=== PATIENT | female | born 2000 | race African-American/Black ===

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

== ENCOUNTER 2021-08-11 12:49 | Emergency (ER) | payer OTHER, SELFPAY ==
[2021-08-11 12:52] VITALS: BP 103/61; PULSE 84; RESP 18; TEMP 36.7; O2SAT 98; BMI 21.9
== END 2021-08-11 15:45 | disposition left against medical advice (07) ==
PROVIDERS: Emergency Provider Emergency Medicine
DX: N89.8 Other specified noninflammatory disorders of vagina (principal)
CPT/HCPCS: 99281; 99282

== ENCOUNTER 2021-08-14 06:10 | Emergency (ER) | payer OTHER, SELFPAY ==
[2021-08-14 06:21] VITALS: BP 127/76; PULSE 114; RESP 16; TEMP 36.8; O2SAT 98; BMI 22.7
--- NOTE | 2021-08-14 06:36 | ED_ITS ---
HPI - Skin/Abscess/Foreign Bdy General Chief complaint: Skin/Abscess/Foreign Body Stated complaint: Cyst Time Seen by Provider: 08/14/21 06:36 Source: patient Mode of arrival: ambulatory Limitations: no limitations History of Present Illness MD complaint: abscess/boil Onset (ago): week(s) (1) Tetanus up to date: yes Location: genitals Severity: moderate Quality: aching Pain Consistency: constant Relieving factors: none Exacerbating factors: palpation Context: none Associated symptoms: fever and chills Treatments prior to arrival: none Related Data Previous Rx's Medication Instructions Recorded mupirocin calcium 2 % topical cream 1 applic TOPICAL BID #15 g 06/07/20 valacyclovir 1 gram tablet 1,000 mg PO BID #14 tab 06/07/20 (Valtrex) hydrocodone 5 mg-acetaminophen 325 1 tab PO Q6H PRN #8 tab 08/14/21 mg tablet ibuprofen 600 mg tablet 600 mg PO Q6H PRN #30 tab 08/14/21 ondansetron 4 mg disintegrating 4 mg PO Q8H PRN #20 tab 08/14/21 tablet sulfamethoxazole 800 1 tab PO BID 7 Days #14 tab 08/14/21 mg-trimethoprim 160 mg tablet (Bactrim DS) Allergies Allergy/AdvReac Type Severity Reaction Status Date / Time No Known Allergies Allergy Verified 08/14/21 06:25 Review of Systems Review of Systems: Constitutional : pos Fever, pos Chills ENT/Mouth : No sore throat, No Rhinorrhea Eyes: No Eye Pain, No Swelling, No Redness Cardiovascular : No Chest Pain, No SOB Respiratory : No Cough, No Sputum Gastrointestinal : No Nausea, No Vomiting, No Diarrhea, No abdominal Pain Genitourinary : No Dysuria, No Hematuria Musculoskeletal : No joint pain, No Myalgias, No Joint Swelling Skin : pos Skin Lesions, positive skin rash Neuro : No Weakness, No Numbness, No Headache Psych : No Anxiety, No Depression Heme/Lymph: No Bruising, No Bleeding,No Lymphadenopathy Endocrine : No Polyuria, No Polydipsia All other systems reviewed and are negative [facility] Past Medical History Attestation statement: The following information was validated with the patient. Medical History Anemia Physical exam Surgical History No pertinent past surgical history Social History Social History (Updated 08/14/21 @ 06:50 by Nehal Wright DO) Alcohol intake: never Patient Tobacco Use Status: Never used Tobacco Advance Directives: No Patient : Yes Physical Exam Vital Signs: Vital Signs: Last Vital Signs Temp 98.2 F 08/14/21 07:08 Pulse 84 08/14/21 07:08 Resp 16 08/14/21 07:08 BP 106/62 08/14/21 07:08 Pulse Ox 100 08/14/21 07:08 BMI result Body Mass Index 22.7 Appearance: Alert. Oriented X3. No acute distress. Eyes: Pupils equal, round and reactive to light. ENT: Pharynx normal. Neck: Normal inspection. Neck supple. CVS: Normal heart rate and rhythm. Pulses normal. Respiratory: No respiratory distress. Breath sounds normal. Abdomen: Soft and nontender. : moderate bartholin cyst noted on R side no signs of outward cellulitis Skin: Skin warm and dry. Normal skin color. Normal skin turgor. Extremities: No lower extremity edema. No calf ttp Neuro: Oriented X 3. No motor deficit. No sensory deficit. MDM - Skin/Abscess/Foreign Bdy MDM Narrative Medical decision making narrative: 21 yo female with R sided bartholin cyst x 1 week - at this time will need I/D she also reports fever and chills at home will start on bactrim. Anticipate DC home with wound precautions Procedures Abscess I/D Site: bartholin's gland Side (if applicable): right Local Anesthetic: lidocaine 1% Amount of anesthesia used (mL): 5 Technique: incised with blade Amount of fluid expressed (mL): 7 Sent for culture/gram staining?: No Irrigation: Yes Packing used?: none Discharge Plan Discharge Clinical Impression: Bartholin cyst Patient Disposition: Home, Self-Care Instructions: Bartholin Cyst (ED) Additional Instructions: return to ED for any worsening symptoms or concerns the area will still drain, monitor for signs of fevers, wosrening pain, any other concerns Prescriptions: New hydrocodone-acetaminophen 5-325 mg tablet 1 tab PO Q6H PRN (Reason: pain) Qty: 8 RF: 0 ibuprofen 600 mg tablet 600 mg PO Q6H PRN (Reason: pain) Qty: 30 RF: 0 ondansetron 4 mg tablet,disintegrating 4 mg PO Q8H PRN (Reason: nausea and vomiting) Qty: 20 RF: 0 sulfamethoxazole-trimethoprim [Bactrim DS] 800-160 mg tablet 1 tab PO BID 7 Days Qty: 14 RF: 0 No Action valacyclovir [Valtrex] 1 gram tablet 1,000 mg PO BID Qty: 14 RF: 0 mupirocin calcium 2 % cream 1 applic topical BID Qty: 15 RF: 0 Stand Alone Forms: Work/School Release
[2021-08-14 07:08] VITALS: BP 106/62; PULSE 84; RESP 16; TEMP 36.8; O2SAT 100
[2021-08-14] MEDS: Sulfamethox/Trimeth 800/160 TABLET 1 TAB PO (07:56)
[2021-08-14] MEDS: Lidocaine 4 % Cream KIT 1 APPL TOPICAL (07:56)
[2021-08-14] MEDS: Lidocaine HCl 1 % 20 ML VIAL SUBCUT (07:56)
== END 2021-08-14 08:10 | disposition home or self-care (01) ==
PROVIDERS: Emergency Provider Emergency Medicine
DX: N75.0 Cyst of Bartholin's gland (principal)
CPT/HCPCS: 56420; 99284

== ENCOUNTER 2021-12-18 08:04 | Emergency (ER) | payer OTHER, SELFPAY ==
[2021-12-18 08:05] VITALS: BP 125/75; PULSE 108; RESP 17; TEMP 36.6; O2SAT 98; BMI 22.7
--- NOTE | 2021-12-18 08:20 | ED_ITS ---
HPI - URI/Sore Throat General Chief Complaint: Upper Respiratory Symptoms Stated Complaint: Sore throat Time Seen by Provider: 12/18/21 08:11 Source: patient Mode of arrival: ambulatory Limitations: no limitations History of Present Illness HPI Narrative: 21 y/o female presenting with sore throat x6 days. Symptoms have been worsening and today she noticed white spots all over both of her tonsils. She has signific ant pain with swallowing but is able to tolerate PO liquids and solids. She reports intermittent fevers and tender lymph nodes in her neck. She is vaccinated for COVID and Flu. No known sick contacts. No N/V/D or abdominal pain. MD elicited complaint: fever and sore throat Onset (ago): day(s) (6) Consistency: constant Severity: severe Description of mucous: clear Able to tolerate fluids by mouth: Yes Exacerbating factors: swallowing Relieving factors: nothing Associated symptoms: fever, nasal congestion and sore throat Treatments prior to arrival: none Related Data Previous Rx's Medication Instructions Recorded mupirocin calcium 2 % topical cream 1 applic TOPICAL BID #15 g 06/07/20 valacyclovir 1 gram tablet 1,000 mg PO BID #14 tab 06/07/20 (Valtrex) hydrocodone 5 mg-acetaminophen 325 1 tab PO Q6H PRN #8 tab 08/14/21 mg tablet ibuprofen 600 mg tablet 600 mg PO Q6H PRN #30 tab 08/14/21 ondansetron 4 mg disintegrating 4 mg PO Q8H PRN #20 tab 08/14/21 tablet sulfamethoxazole 800 1 tab PO BID 7 Days #14 tab 08/14/21 mg-trimethoprim 160 mg tablet (Bactrim DS) amoxicillin 500 mg tablet 500 mg PO Q12H #20 tab 12/18/21 ibuprofen 600 mg tablet 600 mg PO Q8H PRN #20 tab 12/18/21 Allergies Allergy/AdvReac Type Severity Reaction Status Date / Time No Known Allergies Allergy Verified 08/14/21 06:25 Review of Systems Review of Systems: Constitutional: +Fever, No Chills ENT/Mouth: + sore throat, No Rhinorrhea, No Swallowing Difficulty Eyes: No Eye Pain, No Swelling, No Redness Cardiovascular: No Chest Pain, No SOB Respiratory: No Cough, No Sputum Gastrointestinal: No Nausea, No Vomiting, No Diarrhea, No abdominal Pain Musculoskeletal: No joint pain, No Myalgias Skin: No Skin Lesions, No rash Neuro: No Dizziness, No Headache Psych: No Anxiety/Panic, No Depression Heme/Lymph: No Bruising, + Lymphadenopathy PMFSH Past Medical History Medical History Anemia Physical exam Surgical History No pertinent past surgical history Social History Social History (Updated 08/14/21 @ 06:50 by Nehal Wright DO) Alcohol intake: never Patient Tobacco Use Status: Never used Tobacco Advance Directives: No Patient : No Physical Exam Vital Signs: Vital Signs: Last Vital Signs Temp 97.8 F 12/18/21 08:05 Pulse 108 H 12/18/21 08:05 Resp 17 12/18/21 08:05 BP 125/75 12/18/21 08:05 Pulse Ox 98 12/18/21 08:05 BMI result Body Mass Index 22.7 Appearance: Alert. Oriented X3. No acute distress. HEENT: Normocephalic, atraumatic, normal inspection of the external eyes and nose. Tympanic membranes are normal bilaterally. Pharynx with moist mucus membranes, tonsils are bilaterally enlarged with extensive exudates, uvula midl ine. handling secretions normally. Neck: normal inspection, supple. shotty, tender LAD submandibular CVS: Normal heart rate and rhythm. Pulses normal. Respiratory: No respiratory distress. Lungs are clear throughout Skin: Skin warm and dry. Normal skin color. Normal skin turgor. No rashes. Extremities: Normal inspection, normal range of motion x4 Neuro: Oriented X 3. No motor deficit. No sensory deficit. Course Course Course Narrative: 21-year-old female presenting to the ER with sore throat for the last 6 days. Exam and clinical presentation are consistent with strep throat. Will test for strep, flu and COVID. She has no evidence of abscess is able to tolerate p.o.. Will give 1st dose of antibiotics and numbing agent here. Reevaluation(s) Reevaluation #1: Patient is negative for strep, flu and COVID. Given her physical exam findings will empirically treat with amoxicillin. Patient was counseled and is stable for discharge home. MDM - URI/Sore Throat Lab Data Labs: Lab Results 0412/18/21 12/18/21 Range/Units 08:11 08:15 08:15 COVID-19 (HEATH) Negative (Negative) COVID-19 Clin Com See Note Influenza Type A (TANIA) Negative (Negative) Influenza Type B (TANIA) Negative (Negative) Influenza A & B Note See Note S. pyogenes GrpA TANIA Negative (Negative) Critical Care Time Critical Care Time Critical Care Time: No Discharge Plan Discharge Clinical Impression: Pharyngitis Patient Disposition: Home, Self-Care Instructions: Influenza (DC) Additional Instructions: You have for strep throat, COVID-19 and influenza. Given your exam findings are being treated with antibiotics any how. Take the prescribed antibiotics for a full 10 days. Recommend warm saltwater gargles several times per day Recommend [id number] Chloraseptic spray or Cepacol lozenges as needed for sore throat. Take the prescribed anti-inflammatory pain medication to help with pain and fever. Follow-up with your doctor as needed. If you develop new or worsening symptoms call 911 or come back to the ER for further evaluation. Prescriptions: New amoxicillin 500 mg tablet 500 mg PO Q12H Qty: 20 0RF ibuprofen 600 mg tablet 600 mg PO Q8H PRN (Reason: fever or pain) Qty: 20 0RF No Action valacyclovir [Valtrex] 1 gram tablet 1,000 mg PO BID Qty: 14 0RF Rx Instructions: VALTREX TWICE A DAY FOR 7 DAYS DISPENSE 14 TABS mupirocin calcium 2 % cream 1 applic topical BID Qty: 15 0RF Rx Instructions: MUPIROCIN OINTMENT APPLY TWICE A DAY FOR 5 DAYS DISPENSE 1 TUBE hydrocodone-acetaminophen 5-325 mg tablet 1 tab PO Q6H PRN (Reason: pain) Qty: 8 0RF ibuprofen 600 mg tablet 600 mg PO Q6H PRN (Reason: pain) Qty: 30 0RF ondansetron 4 mg tablet,disintegrating 4 mg PO Q8H PRN (Reason: nausea and vomiting) Qty: 20 0RF sulfamethoxazole-trimethoprim [Bactrim DS] 800-160 mg tablet 1 tab PO BID 7 Days Qty: 14 0RF Stand Alone Forms: Work/School Release
[2021-12-18 08:43] LABS: COVID-19 Test Negative (Negative); IDNOW Serial# 16C4AD1C
[2021-12-18 08:50] LABS: Strep A Nucleic Acid Negative (Negative)
[2021-12-18] MEDS: Lidocaine HCl Viscous 2 % 15 ML SOLUTION MUCOUS MEM (08:51)
[2021-12-18] MEDS: Amoxicillin 500 MG CAPSULE PO (08:51)
[2021-12-18] MEDS: dexAMETHasone 2 MG TABLET 10 MG PO (08:51)
[2021-12-18 08:52] LABS: IDNOW Serial# 08D9AD1C; Influenza A Negative (Negative); Influenza B2 Negative (Negative)
== END 2021-12-18 09:15 | disposition home or self-care (01) ==
PROVIDERS: Physician Assistant; Emergency Provider Emergency Medicine
DX: J02.8 Acute pharyngitis due to other specified organisms (principal); Z20.822 Contact with and (suspected) exposure to COVID-19; Z79.899 Other long term (current) drug therapy
CPT/HCPCS: 36415; 87502; 87635; 87651; 99283; J8540

== ENCOUNTER 2022-02-05 17:56 | Emergency (ER) | payer OTHER, SELFPAY ==
--- NOTE | ~2022-02-05 | US_ITS ---
EXAMINATION: US PELVIS CLINICAL INFORMATION: Right lower quadrant pain COMPARISON: CT abdomen pelvis earlier today TECHNIQUE: Ultrasound of the pelvis is performed using both transabdominal and transvaginal transducers along with Doppler. Transvaginal imaging is performed due to inadequate visualization transabdominally. FINDINGS: Uterus: The uterus is anteverted and measures 8.1 x 3.7 x 4.9 cm. The double wall endometrial thickness is 0.5 mm. The uterus is smooth in contour and has normal myometrial echogenicity. No visible fibroid. Adnexa: The ovarian teratomas that were well characterized on the CT scan earlier today are seen. Right ovary measures 8.7 x 6 mm x 6.8 cm for a volume of 189 mL and includes an 8.1 x 6.1 x 5.6 cm mass with cystic and solid components. The calcifications present on the CT scan are not demonstrated Left ovary measures 6.6 x 4.3 x 4.7 cm for a volume of 70 mL and includes a 5.6 x 3.9 x 4.2 cm complex cyst filled with echogenic material. Some solid components are seen. The calcifications seen on the CT scan are not demonstrated US/US pelvic ovarian doppler IMPRESSION: Bilateral cystic ovarian teratomas much better characterized on CT scan in this ultrasound exam.
--- NOTE | ~2022-02-05 | CT_ITS ---
EXAMINATION: CT ABDOMEN AND PELVIS WITHOUT CONTRAST CLINICAL INFORMATION: Right lower quadrant pain. COMPARISON: None TECHNIQUE: Multidetector volumetric imaging was performed from the superior aspect of the liver through the pubic symphysis. Sagittal and coronal reformatted images were obtained on the technologist's workstation. This CT examination was performed using dose optimization techniques as appropriate, variously including the following: *Automated exposure control *Adjustment of mA and/or kV according to patient size (this includes techniques or standardized protocols for targeted exams where dose is matched to indication/reason for exam; i.e. extremities or head) *Use of iterative reconstruction technique DLP: 343 mGy-cm FINDINGS: LUNG BASES: The visualized lung bases are unremarkable. LIVER, GALLBLADDER, AND BILIARY TREE: The liver is normal in size, shape, and attenuation. No focal hepatic lesion or biliary ductal dilatation is present. The gallbladder is unremarkable with no evidence of radiopaque gallstones, gallbladder wall thickening, or obvious pericholecystic inflammatory changes. PANCREAS: Unremarkable. SPLEEN: Unremarkable. ADRENAL GLANDS: Unremarkable. KIDNEYS AND URETERS: The kidneys are normal in size, shape, and attenuation. No hydronephrosis, hydroureter, or calculi seen. No perinephric stranding. BLADDER: Unremarkable. GASTROINTESTINAL TRACT: Stomach, small bowel, and colon are normal in caliber. No bowel wall thickening or surrounding inflammatory changes. Appendix is normal. No intraperitoneal free fluid or free air. ABDOMINAL WALL: No significant hernia is appreciated. LYMPH NODES: Normal. VASCULAR: Unremarkable. PELVIC VISCERA: Uterus is normal in size and appearance. At the right ovary, there is a multilocular, complex dominant 7.6 cm fluid attenuation (5 Hounsfield unit) component as well as multiple surrounding fat density components. A round fat attenuation component at the cephalad/anterior margin of the cystic component measures 3.2 x 1.8 x 2.1 cm. A small dense calcified component is present within the cystic region. This lesion measures 8.3 cm in maximum dimension. There is a similar, complex lesion within the left adnexal region with a dominant 5.2 cm near fluid attenuation component as well as a 2.5 cm fat attenuation component. A cluster of multiple dense calcific foci in the left ovary likely correspond to teeth. This lesion measures 7.2 cm in maximal dimension. OSSEOUS STRUCTURES: No acute osseous findings. 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 Surgical consultation is advised. Consider correlation with pelvic ultrasound if there is a clinical concern for torsion.
--- NOTE | ~2022-02-05 | US_ITS ---
EXAMINATION: US PELVIS CLINICAL INFORMATION: Right lower quadrant pain COMPARISON: CT abdomen pelvis earlier today TECHNIQUE: Ultrasound of the pelvis is performed using both transabdominal and transvaginal transducers along with Doppler. Transvaginal imaging is performed due to inadequate visualization transabdominally. FINDINGS: Uterus: The uterus is anteverted and measures 8.1 x 3.7 x 4.9 cm. The double wall endometrial thickness is 0.5 mm. The uterus is smooth in contour and has normal myometrial echogenicity. No visible fibroid. Adnexa: The ovarian teratomas that were well characterized on the CT scan earlier today are seen. Right ovary measures 8.7 x 6 mm x 6.8 cm for a volume of 189 mL and includes an 8.1 x 6.1 x 5.6 cm mass with cystic and solid components. The calcifications present on the CT scan are not demonstrated Left ovary measures 6.6 x 4.3 x 4.7 cm for a volume of 70 mL and includes a 5.6 x 3.9 x 4.2 cm complex cyst filled with echogenic material. Some solid components are seen. The calcifications seen on the CT scan are not demonstrated US/US pelvic complete IMPRESSION: Bilateral cystic ovarian teratomas much better characterized on CT scan in this ultrasound exam.
[2022-02-05 19:00] VITALS: BP 116/71; PULSE 80; RESP 18; TEMP 36.6; O2SAT 100; BMI 21.9
[2022-02-05 19:58] LABS: MANUAL DIFF FLAG NO
[2022-02-05 20:01] LABS: UPreg QC Valid YES; Urine Pregnancy NEGATIVE (NEGATIVE)
[2022-02-05 20:04] LABS: Basophils Percent Auto 0.2 % (0-2); Eosinophils Percent Auto 0.2 % (0-4); Hematocrit 42.5 % (37.0-47.0); Hemoglobin 13.7 g/dl (12.0-16.0); Imm Gran Abs Auto 0.03 X10*3/uL (0.00-0.03); Imm Gran Pct Auto 0.3 % (0.0-0.4); Lymphocytes Absolute Auto 0.8 X10*3/uL (1.2-4.9); Lymphocytes Percent Auto 8.9 % (20-40); Mean Corpuscular HGB Conc 32.2 g/dl (31.0-35.0); Mean Corpuscular Hemoglobin 26.8 pg (27.0-33.0); Mean Platelet Volume 9.4 fL (9.4-12.3); Monocytes Absolute Auto 0.4 X10*3/uL (0.1-1.2); Monocytes Percent Auto 4.1 % (2-11); Neutrophils Absolute Auto 7.7 x10*3/uL (2.0-8.3); Neutrophils Percent Auto 86.3 % (45-73); Platelet Count 235 X10*3/uL (160-400); Red Blood Count 5.12 X10*6/uL (4.20-5.50); Red Cell Distribution Width 13.8 % (11.0-16.0)
[2022-02-05 20:05] LABS: Appearance Urine CLEAR; Color Urine YELLOW; Glucose Urine UA NEG (NEG); Leukocyte Esterase Urine NEG (NEG); Nitrite Urine NEG (NEG); PH 7.5 (5.0-8.0); Urine Blood NEG (NEG); Urine Ketones NEG (NEG); Urine Protein NEG (NEG-TRACE)
[2022-02-05 20:17] LABS: Alanine Aminotransferase 9 U/L (0-31); Albumin Level 4.4 g/dL (3.5-5.0); Alkaline Phosphatase 59 U/L (39-117); Anion Gap 13 (12-20); Aspartate Amino Transferase 14 U/L (5-31); Bilirubin Direct 0.7 mg/dL (0.0-0.5); Bilirubin Total 1.7 mg/dL (0.0-1.0); Blood Urea Nitrogen 9 mg/dL (9-16); Calcium 9.7 mg/dL (8.4-10.2); Carbon Dioxide 24 mmol/L (22-29); Chloride 106 mmol/L (96-108); Creatinine Clr Calc Pharmacy 127.2; Estimated Glomerular Filt Rate > 60; Glucose Random 101 mg/dL (60-115); Potassium 3.7 mmol/L (3.3-5.1); Sodium 139 mmol/L (135-145); Total Protein 7.7 g/dL (6.5-8.0)
--- NOTE | 2022-02-05 21:18 | ED_ITS ---
HPI - Abdominal Pain General Chief Complaint: Abdominal Pain <NATE Culp Last Filed: 02/06/22 01:46> Stated Complaint: rt side abd pain <NATE Culp Last Filed: 02/06/22 01:46> Time Seen by Provider: 02/05/22 20:47 <NATE Culp Last Filed: 02/06/22 01:46> Source: patient <NATE Culp Last Filed: 02/06/22 01:46> Mode of arrival: ambulatory <NATE Culp Last Filed: 02/06/22 01:46> Limitations: no limitations <NATE Culp Last Filed: 02/06/22 01:46> History of Present Illness HPI narrative: 22-year-old female no significant medical history presenting to the emergency department with complaints of right lower quadrant pain, nausea and anorexia x2 days. Patient tells me that her pain started yesterday evening, it started above her belly button and radiated down to her right lower quadrant. Patient tells me that the pain initially was intermittent in nature however the pain is now constant. Patient tells me that she decided to come in today after she read on [employer] that this could be appendicitis. Patient denies any previous abdominal surgeries. She also reports associated nausea and decreased appetite. Denies chest pain, shortness of breath, fevers, chills, vomiting, headache, dizziness, weakness. <NATE Culp Last Filed: 02/06/22 01:46> MD elicited complaint: abdominal pain <NATE Culp Last Filed: 02/06/22 01:46> Pertinent past history: none <NATE Culp Last Filed: 02/06/22 01:46> Onset (ago): day(s) (2) <NATE Culp Last Filed: 02/06/22 01:46> Pain Consistency: constant <NATE Culp Last Filed: 02/06/22 01:46> Location: epigastric and RLQ <NATE Culp Last Filed: 02/06/22 01:46> Severity: severe <NATE Culp Last Filed: 02/06/22 01:46> Pain scale (0-10): 10 <NATE Culp Last Filed: 02/06/22 01:46> Quality: stabbing <NATE Culp Last Filed: 02/06/22 01:46> Radiation: RLQ <NATE Culp - Last Filed: 02/06/22 01:46> Migration to: no migration <NATE Culp Last Filed: 02/06/22 01:46> Exacerbating factors: nothing <NATE Culp Last Filed: 02/06/22 01:46> Relieving factors: nothing <NATE Culp Last Filed: 02/06/22 01:46> Associated symptoms: nausea <NATE Culp Last Filed: 02/06/22 01:46> Related Data Home Medications: Previous Rx's Medication Instructions Recorded mupirocin calcium 2 % topical cream 1 applic TOPICAL BID #15 g 06/07/20 valacyclovir 1 gram tablet 1,000 mg PO BID #14 tab 06/07/20 (Valtrex) hydrocodone 5 mg-acetaminophen 325 1 tab PO Q6H PRN #8 tab 08/14/21 mg tablet ibuprofen 600 mg tablet 600 mg PO Q6H PRN #30 tab 08/14/21 ondansetron 4 mg disintegrating 4 mg PO Q8H PRN #20 tab 08/14/21 tablet sulfamethoxazole 800 1 tab PO BID 7 Days #14 tab 08/14/21 mg-trimethoprim 160 mg tablet (Bactrim DS) amoxicillin 500 mg tablet 500 mg PO Q12H #20 tab 12/18/21 ibuprofen 600 mg tablet 600 mg PO Q8H PRN #20 tab 12/18/21 ondansetron 4 mg disintegrating 4 mg PO Q6-8H PRN #10 tab 02/05/22 tablet morphine 15 mg immediate release 15 mg PO Q8H PRN #6 tab 02/06/22 tablet <NATE Culp Last Filed: 02/06/22 01:46> Allergies/Adverse Reactions: Allergies Allergy/AdvReac Type Severity Reaction Status Date / Time No Known Allergies Allergy Verified 08/14/21 06:25 <NATE Culp - Last Filed: 02/06/22 01:46> Review of Systems Review of Systems Constitutional : No Weight loss, No Fever, No Chills, No Fatigue, No Malaise ENT/Mouth : No sore throat, No Rhinorrhea Eyes: No Eye Pain, No Swelling, No Redness Cardiovascular : No Chest Pain, No SOB, No Dyspnea on Exertion, No Orthopnea, No Edema, No Palpitations Respiratory : No Cough, No Sputum, No Wheezing Gastrointestinal : + Nausea, No Vomiting, No Diarrhea, No Constipation, + abdominal Pain, No Hematochezia, No Melena Genitourinary : No Dysuria, No Urinary Frequency, No Hematuria, Musculoskeletal : No joint pain, No Myalgias, No Joint Swelling Skin : No Skin Lesions, No rash Neuro : No Weakness, No Numbness, No Dizziness, No Headache Psych : No Anxiety/Panic, No Depression All other systems reviewed and are negative <NATE Culp - Last Filed: 02/06/22 01:46> Yes all other systems are reviewed and are negative <NATE Culp - Last Filed: 02/06/22 01:46> FORMERLY [facility] Past Medical History Attestation statement: The following information was validated with the patient. <NATE Culp - Last Filed: 02/06/22 01:46> Source: old records reviewed and nursing notes reviewed <NATE Culp - Last Filed: 02/06/22 01:46> Medical History: Medical History Anemia Physical exam <NATE Culp - Last Filed: 02/06/22 01:46> Surgical History: Surgical History No pertinent past surgical history <NATE Culp - Last Filed: 02/06/22 01:46> Social History Social History: Social History Alcohol intake: never Patient Tobacco Use Status: Never used Tobacco Advance Directives: No Advance Directives Information Provided: No <NATE Culp Last Filed: 02/06/22 01:46> Physical Exam ED Vital Signs: Vital Signs - 24 hr 02/05/22 19:00 02/05/22 21:40 02/05/22 22:23 Temperature 97.8 F 98.1 F Pulse Rate 80 88 66 Respiratory Rate 18 18 14 Blood Pressure 116/71 112/76 110/63 Pulse Oximetry 100 100 100 02/05/22 23:19 02/06/22 00:36 Temperature Pulse Rate 69 Respiratory Rate 15 14 Blood Pressure 105/57 L Pulse Oximetry 99 BMI result Body Mass Index 21.9 Vital signs stable <NATE Culp Last Filed: 02/06/22 01:46> Appearance: Alert.? Oriented X3.? No acute distress.? Head: Normocephalic, atraumatic, no step-offs or deformities Eyes: Pupils equal, round and reactive to light.? ENT: Pharynx normal.? Neck: Normal inspection.? Neck supple.? CVS: Normal heart rate and rhythm.? Pulses normal.? Respiratory: No respiratory distress.? Breath sounds normal.? Abdomen: Soft and + tenderness to right lower quadrant positive McBurney's point, negative Mane's. Normoactive bowel sounds Skin: Skin warm and dry.? Normal skin color.? Normal skin turgor.? Extremities: No lower extremity edema.? No calf ttp. 5/5 strength to bilateral upper and lower extremities Back: No midline tenderness, no C-spine tenderness, full range of motion, no CVA tenderness bilaterally Neuro: Oriented X 3.? No motor deficit.? No sensory deficit. CN 2-12 intact <NATE Culp Last Filed: 02/06/22 01:46> Course Reevaluation(s) Reevaluation #1: Patient's CBC appears to be within normal limits. Chemistry with no acute electrolyte abnormalities requiring intervention. Patient's bilirubin and direct bilirubin slightly elevated. Urine negative. Urine negative. Serum HCG and lipase pending at this time as well as CT of the abdomen pelvis with no contrast. <NATE Culp Last Filed: 02/06/22 01:46> Time: 21:21 <NATE Culp - Last Filed: 02/06/22 01:46> Reevaluation #2: CT of the abdomen and pelvis with bilateral mature cystic ovarian teratoma is measuring 8.3 cm on the right, 7.2 cm on the left. At this time a pelvic ultrasound will be obtained to rule out torsion although unlikely. Call out has also been made to OBGYN Dr. Randle <NATE Culp - Last Filed: 02/06/22 01:46> Time: :53 <NATE Culp - Last Filed: 02/06/22 01:46> Reevaluation #3: came to evaluate patient who recommends she follow up outpatient. No evidence of torsion, may require outpatient laparoscopic procedure. He spoke to patient about plan. Ultrasound of the pelvic complete with bilateral cystic ovarian teratomas. This time patient will be discharged home with OBGYN follow-up, will give her [facility] supply of narcotic pain medicine for severe pain. Advised her to only take this if needed. Advised her to take ibuprofen every 6 hours, Tylenol every 4 for [id number] pain. Provided her with OBGYN follow-up. Outlined and discussed with patient signs ovarian torsion these are outlined on her discharge. Comfortable discharge home <NATE Culp - Last Filed: 02/06/22 01:46> Time: 01:05 <NATE Culp - Last Filed: 02/06/22 01:46> MDM - Abdominal Pain MDM Narrative Medical decision making narrative: 2119 22-year-old female history of anemia presents with right lower quadrant pain and associated nausea and anorexia x1 day. Patient still has her appendix and gallbladder. Reporting severe pain that is intermittent in nature and progressively worsening. Physical examination significant for pain with palpation to right lower quadrant, abdomen is soft and there are normoactive bowel sounds. Regular rate and rhythm. Lungs clear. Neuro exam is nonfocal. Vital signs are stable and patient is afebrile. Plan at this time is to obtain basic labs, urine, test, CT of the abdomen pelvis without contrast. This patient was evaluated during a time of global shortage of iodinated contrast media. Based on guidance from the [employer], best practices, and local institutional approaches an alternative path for evaluating and managing the patient may have been employed in order to provide optimal care during this shortage. The current situation has been discussed with the patient. <NATE Culp - Last Filed: 02/06/22 01:46> Medical Records Attestation: I reviewed the patient's medical records. <NATE Culp - Last Filed: 02/06/22 01:46> Lab Data Attestation: I reviewed the patient's lab results. <NATE Culp - Last Filed: 02/06/22 01:46> Result diagrams: : 02/05/22 19:52 02/05/22 19:52 <NATE Culp - Last Filed: 02/06/22 01:46> Labs: Lab Results 02/05/22 02/05/22 02/05/22 Range/Units 19:52 19:52 19:52 WBC 9.0 (4.8-10.8) X10*3/uL RBC 5.12 (4.20-5.50) X10*6/uL Hgb 13.7 (12.0-16.0) g/dl Hct 42.5 (37.0-47.0) % MCV 83.0 (80.0-98.0) fL MCH 26.8 L (27.0-33.0) pg MCHC 32.2 (31.0-35.0) g/dl RDW 13.8 (11.0-16.0) % Plt Count 235 (160-400) X10*3/uL MPV 9.4 (9.4-12.3) fL Immature Gran % (Auto) 0.3 (0.0-0.4) % Neut % (Auto) 86.3 H (45-73) % Lymph % (Auto) 8.9 L (20-40) % [place] % (Auto) 4.1 (2-11) % Eos % (Auto) 0.2 (0-4) % Baso % (Auto) 0.2 (0-2) % Lymph # (Auto) 0.8 L (1.2-4.9) X10*3/uL [place] # (Auto) 0.4 (0.1-1.2) X10*3/uL Eos # (Auto) 0.0 (0.0-0.4) X10*3/uL Baso # (Auto) 0.0 (0.0-0.2) X10*3/uL Abs Immat Gran (auto) 0.03 (0.00-0.03) X10*3/uL Absolute Neuts (auto) 7.7 (2.0-8.3) x10*3/uL Absolute Nucleated RBC 0.000 (0.0-0.012) X10*3/uL Nucleated RBC % (auto) 0.0 (0.0-0.2) /100WBC Sodium 139 (135-145) mmol/L Potassium 3.7 (3.3-5.1) mmol/L Chloride 106 (96-108) mmol/L Carbon Dioxide 24 (22-29) mmol/L Anion Gap 13 (12-20) BUN 9 (9-16) mg/dL Creatinine 0.68 (0.5-1.4) mg/dL Estim Creat Clear Calc 127.2 Estimated GFR > 60 Random Glucose 101 (60-115) mg/dL Calcium 9.7 (8.4-10.2) mg/dL Total Bilirubin 1.7 H (0.0-1.0) mg/dL Direct Bilirubin 0.7 H (0.0-0.5) mg/dL AST 14 (5-31) U/L ALT 9 (0-31) U/L Alkaline Phosphatase 59 (39-117) U/L Total Protein 7.7 (6.5-8.0) g/dL Albumin 4.4 (3.5-5.0) g/dL Lipase 5 L (8-78) U/L Beta HCG, Quant < 2 mIU/mL Urine Color YELLOW Urine Appearance CLEAR Urine pH 7.5 (5.0-8.0) Ur Specific [place] 1.020 (1.005-1.025) Urine Protein NEG (NEG-TRACE) MG/DL Urine Glucose (UA) NEG (NEG) MG/DL Urine Ketones NEG (NEG) MG/DL Urine Blood NEG (NEG) Urine Nitrite NEG (NEG) Ur Leukocyte Esterase NEG (NEG) Urine Test (NEGATIVE) 02/05/22 Range/Units 19:52 WBC (4.8-10.8) X10*3/uL RBC (4.20-5.50) X10*6/uL Hgb (12.0-16.0) g/dl Hct (37.0-47.0) % MCV (80.0-98.0) fL MCH (27.0-33.0) pg MCHC (31.0-35.0) g/dl RDW (11.0-16.0) % Plt Count (160-400) X10*3/uL MPV (9.4-12.3) fL Immature Gran % (Auto) (0.0-0.4) % Neut % (Auto) (45-73) % Lymph % (Auto) (20-40) % [place] % (Auto) (2-11) % Eos % (Auto) (0-4) % Baso % (Auto) (0-2) % Lymph # (Auto) (1.2-4.9) X10*3/uL [place] # (Auto) (0.1-1.2) X10*3/uL Eos # (Auto) (0.0-0.4) X10*3/uL Baso # (Auto) (0.0-0.2) X10*3/uL Abs Immat Gran (auto) (0.00-0.03) X10*3/uL Absolute Neuts (auto) (2.0-8.3) x10*3/uL Absolute Nucleated RBC (0.0-0.012) X10*3/uL Nucleated RBC % (auto) (0.0-0.2) /100WBC Sodium (135-145) mmol/L Potassium (3.3-5.1) mmol/L Chloride (96-108) mmol/L Carbon Dioxide (22-29) mmol/L Anion Gap (12-20) BUN (9-16) mg/dL Creatinine (0.5-1.4) mg/dL Estim Creat Clear Calc Estimated GFR Random Glucose (60-115) mg/dL Calcium (8.4-10.2) mg/dL Total Bilirubin (0.0-1.0) mg/dL Direct Bilirubin (0.0-0.5) mg/dL AST (5-31) U/L ALT (0-31) U/L Alkaline Phosphatase (39-117) U/L Total Protein (6.5-8.0) g/dL Albumin (3.5-5.0) g/dL Lipase (8-78) U/L Beta HCG, Quant mIU/mL Urine Color Urine Appearance Urine pH (5.0-8.0) Ur Specific [place] (1.005-1.025) Urine Protein (NEG-TRACE) MG/DL Urine Glucose (UA) (NEG) MG/DL Urine Ketones (NEG) MG/DL Urine Blood (NEG) Urine Nitrite (NEG) Ur Leukocyte Esterase (NEG) Urine Test NEGATIVE (NEGATIVE) <NATE Culp - Last Filed: 02/06/22 01:46> Critical Care Time Critical Care Time Critical Care Time: No <NATE Culp Last Filed: 02/06/22 01:46> Discharge Plan Discharge Clinical Impression: Mature cystic teratoma of both ovaries, Abdominal pain, Nausea <NATE Culp Last Filed: 02/06/22 01:46> Patient Disposition: Home, Self-Care <NATE Cupl Last Filed: 02/06/22 01:46> Instructions: HIDA Scan (DC), Acute Nausea and Vomiting (ED), Abdominal Pain (ED), Heat Pack Application (ED) <NATE Culp Last Filed: 02/06/22 01:46> Additional Instructions: Take your medications as prescribed. If you were prescribed antibiotics today, it is important that you take your medication to their entirety, do not skip any doses, do not finish them early. Follow-up with your primary care provider this week. Return to the emergency department with new or worsening symptoms. Such as fevers, chills, chest pain, shortness of breath, nausea, vomiting, dizziness, headache, vision changes, lethargy, worsening pain In case of emergency call 911 Please be on the look out for any signs of ovarian torsion such as severe sudden pain, nausea, vomiting, back pain. Morphine has been sent to your pharmacy you should use this only for severe 9 to 10/10 pain. For [id number] pain please use ibuprofen every 6 hours, Tylenol every 4 alternate day. Please no narcotics or strong pain medicine, they can cause addiction and side effects such as low blood pressure, constipation. 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 Surgical consultation is advised. Consider correlation with pelvic ultrasound if there is a clinical concern for torsion. ? US/US pelvic complete IMPRESSION: Bilateral cystic ovarian teratomas much better characterized on CT scan in this ultrasound exam. Initial report was created by Dr. Mello, with addendum now made regarding bilateral ovarian flow; images demonstrate arterial and venous waveforms in the bilateral ovaries Please be advised that you were seen during a time of global shortage of iodin ated contrast media. This means an alternative approach to your diagnosis and treatment may have been employed in order to provide optimal care during the shortage. If you have any worsening symptoms, please go to the nearest emergency department or call 911 immediately <NATE Culp - Last Filed: 02/06/22 01:46> Prescriptions: New ondansetron 4 mg tablet,disintegrating 4 mg PO Q6-8H PRN (Reason: nausea and vomiting) Qty: 10 0RF morphine 15 mg tablet 15 mg PO Q8H PRN (Reason: pain) Qty: 6 0RF Rx Instructions: Patient can partially filled this prescription upon request No Action valacyclovir [Valtrex] 1 gram tablet 1,000 mg PO BID Qty: 14 0RF Rx Instructions: VALTREX TWICE A DAY FOR 7 DAYS DISPENSE 14 TABS mupirocin calcium 2 % cream 1 applic topical BID Qty: 15 0RF Rx Instructions: MUPIROCIN OINTMENT APPLY TWICE A DAY FOR 5 DAYS DISPENSE 1 TUBE amoxicillin 500 mg tablet 500 mg PO Q12H Qty: 20 0RF ibuprofen 600 mg tablet 600 mg PO Q8H PRN (Reason: fever or pain) Qty: 20 0RF hydrocodone-acetaminophen 5-325 mg tablet 1 tab PO Q6H PRN (Reason: pain) Qty: 8 0RF ibuprofen 600 mg tablet 600 mg PO Q6H PRN (Reason: pain) Qty: 30 0RF ondansetron 4 mg tablet,disintegrating 4 mg PO Q8H PRN (Reason: nausea and vomiting) Qty: 20 0RF sulfamethoxazole-trimethoprim [Bactrim DS] 800-160 mg tablet 1 tab PO BID 7 Days Qty: 14 0RF <NATE Culp - Last Filed: 02/06/22 01:46> Referrals: PhysicianGhassan [Primary Care Provider] - 2 days Stas Randle MD [Physician] - 1 week <NATE Culp - Last Filed: 02/06/22 01:46> Stand Alone Forms: Work/School Release <NATE Culp - Last Filed: 02/06/22 01:46> Interventions: ED Discharge Assessment Last Done: 02/06/22 01:49 <NATE Culp - Last Filed: 02/06/22 01:46> Discharge Date/Time: 02/06/22 01:50 <NATE Culp - Last Filed: 02/06/22 01:46>
[2022-02-05] MEDS: Morphine Sulfate 4 MG/ML CARTRIDGE IVPUSH (21:37)
[2022-02-05] MEDS: 0.9 % Sodium Chloride 1,000 ML 999 ML IV (21:37)
[2022-02-05] MEDS: ondansetron HCL 4 MG/2 ML VIAL IVPUSH (21:37)
[2022-02-05 21:39] LABS: Lipase 5 U/L (8-78)
[2022-02-05 21:40] VITALS: BP 112/76; PULSE 88; RESP 18; O2SAT 100
[2022-02-05 21:45] LABS: HCG Quantitative < 2 mIU/mL
[2022-02-05 22:23] VITALS: BP 110/63; PULSE 66; RESP 14; TEMP 36.7; O2SAT 100
[2022-02-05 23:19] VITALS: RESP 15
[2022-02-05] MEDS: HYDROmorphone HCl 0.5 MG/0.5 ML SYRINGE IVPUSH (23:19)
--- NOTE | 2022-02-05 23:29 | PC.NURSE ---
Patient complaining of abdominal pain and given 0.[address] Randle to come in and evaluate patient.
--- NOTE | 2022-02-05 23:39 | P.CONOB_ITS ---
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 The pain started yesterday evening, it started above her umbilical area and was radiating down to her right lower quadrant; initially it was intermittent in nature, however, the pain became constant now, no fever, chills, vomiting, vaginal discharge or abnormal uterine bleeding.In the emergency room CBC within normal with no evidence of leukocytosis, chemistry and urinalysis were negative and urine test was negative. 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 of Systems Review of Systems ROS Unobtainable: All systems reviewed & are unremarkable except as noted in HPI and below Cardiovascular: Denies Palpatations, Loss of consciousness or Chest pain Respiratory: Denies Cough, Wheezing or Shortness of breath Musculoskeletal: Denies Low back pain Gastrointestinal: Denies Heartburn, Constipation, Diarrhea, Nausea or Vomiting Genitourinary: Denies Pain with urination, Burning with urination or Urinary frequency Neurological: Denies Migranes Psychological: Denies Depression OB PMFSH Past Medical History Medical History Anemia Physical exam Surgical History Surgical History No pertinent past surgical history Social History Social History Alcohol intake: never Patient Tobacco Use Status: Never used Tobacco Advance Directives: No Advance Directives Information Provided: No Meds Allergies Allergy/AdvReac Type Severity Reaction Status Date / Time No Known Allergies Allergy Verified 08/14/21 06:25 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 Exam Vitals Vital signs: Temp Pulse Resp BP Pulse Ox 98.1 F 66 15 110/63 100 02/05/22 22:23 02/05/22 22:23 02/05/22 23:19 02/05/22 22:23 02/05/22 22:23 BMI result Body Mass Index 21.9 Constitutional General Appearance: Healthy appearing, Well-nourished and Well-developed Psychiatric Mood and Affect: active and alert, normal mood and normal affect Skin Appearance: No rashes and No lesions Cardiovascular Peripheral Vascular: Pedal pulses intact Abdomen Auscultation/Inspection/Palpation: Normal bowel sounds, Soft, Non-distended and No tenderness Female Genitalia (Pelvic) Bladder/Urethra: Normal meatus Vulva: No lesions Vagina: Nontender Cervix: Grossly normal Uterus: Normal size Adnexa/Parametria: Adnexal Tenderness: None, Adnexal Mass: Bilateral, Parametrial Tenderness: None and Parametrial Mass: None 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 Labs CBC & Chem 7: 02/05/22 19:52 02/05/22 19:52 Labs: Short CBC 02/05/22 Range/Units 19:52 WBC 9.0 (4.8-10.8) X10*3/uL Hgb 13.7 (12.0-16.0) g/dl Hct 42.5 (37.0-47.0) % Plt Count 235 (160-400) X10*3/uL BMP 02/05/22 19:52 Sodium 139 Potassium 3.7 Chloride 106 Carbon Dioxide 24 BUN 9 Creatinine 0.68 Calcium 9.7 Liver Function 02/05/22 Range/Units 19:52 Total Bilirubin 1.7 H (0.0-1.0) mg/dL Direct Bilirubin 0.7 H (0.0-0.5) mg/dL AST 14 (5-31) U/L ALT 9 (0-31) U/L Alkaline Phosphatase 59 (39-117) U/L Albumin 4.4 (3.5-5.0) g/dL Urine 02/05/22 02/05/22 Range/Units 19:52 19:52 Urine Color YELLOW Urine Appearance CLEAR Urine pH 7.5 (5.0-8.0) Ur Specific [place] 1.020 (1.005-1.025) Urine Protein NEG (NEG-TRACE) MG/DL Urine Glucose (UA) NEG (NEG) MG/DL Urine Test NEGATIVE (NEGATIVE) Imaging CT scan - pelvis: Radiologist's impression: ITS Impressions Abdomen/Pelvis CT 02/05/22 21:38 IMPRESSION: Bilateral mature cystic ovarian teratomas measuring 8.3 cm at the right ovary and 7.2 cm at the left. Surgical consultation is advised. Consider correlation with pelvic ultrasound if there is a clinical concern for torsion. Assessment and Plan (1) Mature cystic teratoma of both ovaries: Status: Acute GC and chlamydia with BV panel taken. Discussed with the patient the finding on CT scan and pelvic ultrasound, bilateral ovarian teratomas with normal bilateral ovarian vessels flows, and no evidence of torsion. Explained to the patient that these tumors have a characteristic imaging appearance, which allows reasonably accurate noninvasive diagnosis in many cases with high reported specificity is 98 to 100 percent, but definitive diagnosis is made at the time of surgical excision. Malignant transformation occurs in 0.2 to 2 percent of mature cystic teratomas The treatment is laparoscopic ovarian cystectomy in order to make a definitive diagnosis, preserve ovarian tissue, and avoid potential problems such as torsion, rupture, or development of malignant components. Benign cystic teratomas do not recur if surgically resected. Recommend to discharge the patient home, ibuprofen 600 mg Q 8 hours p.r.n. pain, instructions given to patient to avoid intercourse and strenuous exercises, warning signs and symptoms of ovarian torsion and/or rupture given to the patient, she is to come back to emergency room in case worsening of persistence and /or worsening of her pain, nausea and / or vomiting, otherwise follow-up with her OBGYN as an outpatient for further management. All questions answered, the patient verbalized understanding and agreed with the plan. This note was generated with a voice recognition program. Some errors may have been overlooked during the review of this note. Sometimes these errors may affect the content or meaning of a given sentence.
[2022-02-06 00:36] VITALS: BP 105/57; PULSE 69; RESP 14; O2SAT 99
--- NOTE | 2022-02-06 01:42 | PC.NURSE ---
Patient requesting to get her discharge papers. Radiologist needs to report flow on the scan and then PA can discharge patient. Patient made aware of delay
[2022-02-06 02:16] LABS: CT PCR NOT DETECTED (Not Detect.); NG PCR NOT DETECTED (Not Detect.)
[2022-02-07 08:46] LABS: BV Int Neg Control Negative (Negative); BV Int Pos Control Positive (Positive)
== END 2022-02-06 01:50 | disposition home or self-care (01) ==
PROVIDERS: Physician Assistant; Emergency Provider Emergency Medicine
DX: R10.31 Right lower quadrant pain (principal); D27.1 Benign neoplasm of left ovary; D27.0 Benign neoplasm of right ovary; R11.0 Nausea
CPT/HCPCS: 36415; 74176; 76856; 80053; 81003; 81025; 82248; 83690; 84702; 85025; 87480; 87491; 87510; 87591; 87660; 93975; 96361; 96374; 96375; 99284; J1170; J2270; J2405

== ENCOUNTER 2023-12-02 20:28 | Emergency (ER) | payer OTHER, SELFPAY ==
[2023-12-02 21:28] VITALS: BP 116/76; PULSE 66; RESP 16; TEMP 36.3; O2SAT 99; BMI 26.6
[2023-12-02 23:52] VITALS: BP 112/72; PULSE 61; RESP 14; TEMP 36.7; O2SAT 100
[2023-12-03 00:21] LABS: Appearance Urine Clear; Color Urine Yellow; Glucose Urine UA Negative (Negative); Leukocyte Esterase Urine Negative (Negative); Nitrite Urine Negative (Negative); PH 6.5 (5.0-9.0); Specific Gravity - Urine 1.015 (1.005-1.025); Urine Blood Negative (Negative); Urine Ketones Negative (Negative); Urine Protein Negative (Neg-Trace)
[2023-12-03 00:23] LABS: UPreg QC Valid YES; Urine Pregnancy NEGATIVE (NEGATIVE)
[2023-12-03] MEDS: Ibuprofen 600 MG TABLET PO (00:38)
== END 2023-12-03 06:04 | disposition left against medical advice (07) ==
PROVIDERS: Emergency Provider Emergency Medicine
DX: R10.31 Right lower quadrant pain (principal)
CPT/HCPCS: 81003; 81025; 99283

== ENCOUNTER 2023-12-05 18:07 | Emergency (ER) | payer OTHER, SELFPAY ==
--- NOTE | ~2023-12-05 | CT_ITS ---
EXAMINATION: CT ABDOMEN AND PELVIS WITH CONTRAST CLINICAL INFORMATION: 23-year-old female with right lower quadrant abdominal pain, evaluate for appendicitis COMPARISON: 02/05/2022 TECHNIQUE: Multidetector volumetric images were obtained from the superior aspect of the liver through the pubic symphysis following administration 85 mL of Omnipaque 350 intravenous contrast. Sagittal and coronal reformatted images were obtained on the technologist's workstation. Oral contrast: None This CT examination was performed using dose optimization techniques as appropriate, variously including the following: *Automated exposure control *Adjustment of mA and/or kV according to patient size (this includes techniques or standardized protocols for targeted exams where dose is matched to indication/reason for exam; i.e. extremities or head) *Use of iterative reconstruction technique DLP: 487 mGy-cm FINDINGS: LUNG BASES: The visualized lung bases are unremarkable. LIVER, GALLBLADDER, AND BILIARY TREE: The liver is normal in size, shape, and attenuation. No focal hepatic lesion or biliary ductal dilatation is present. The gallbladder is unremarkable with no evidence of radiopaque gallstones, gallbladder wall thickening, or obvious pericholecystic inflammatory changes. PANCREAS: Unremarkable. SPLEEN: Unremarkable. ADRENAL GLANDS: Unremarkable. KIDNEYS AND URETERS: The kidneys are normal in size, shape, and attenuation. No hydronephrosis, hydroureter, or calculi seen. No perinephric stranding. BLADDER: Unremarkable. GASTROINTESTINAL TRACT: The small and large bowel are unremarkable. The appendix is unremarkable. ABDOMINAL WALL: No significant hernia is appreciated. LYMPH NODES: Normal. VASCULAR: Unremarkable. 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 On the left there are multiple calcifications present associated with cystic structure extending to the left and in the cul-de-sac. Fluid collection measured 8.6 x 5.8 x 5.0 cm. Uterus is unremarkable OSSEOUS STRUCTURES: Bilateral adnexal/ovarian mature teratomas growing since previous study. Surgical excision is recommended CT/CT abdomen pelvis w IV con IMPRESSION: No significant abnormality. Fleischner guidelines were followed.
[2023-12-05 18:35] VITALS: BP 135/112; PULSE 66; RESP 18; TEMP 36.7; O2SAT 94; BMI 27.3
--- NOTE | 2023-12-05 18:36 | ED.GENADULT ---
HPI - General Adult General Chief complaint: Abdominal Pain Stated complaint: ovarian cyst lower abd pain Time Seen by Provider: 12/05/23 19:25 Source: patient Mode of arrival: ambulatory Limitations: no limitations History of Present Illness HPI narrative: Patient is a 23 year old assigned female at with a history of ovarian cysts presenting to the emergency department today with right lower quadrant abdominal pain. Patient states that she had this right lower quadrant abdominal pain for 4 days, it got better, and now it is back - worse than previously. Patient states it feels similar to her previous ovarian pain but she still has her appendix. Patient denies any dizziness, lightheadedness, nausea, vomiting, fever, chills, blurry vision, double vision, loss of vision, chest pain, difficulty breathing, shortness of breath, back pain, night sweats, pain with urination, increased urinary frequency, increased urinary urgency, blood in her urine or stool, syncope or a near syncopal episode, recent trauma or falls, bowel incontinence, bladder incontinence, bowel retention, bladder retention, or any other complaints at this time. Onset (ago): day(s) Location: abdomen and right Severity: mild Severity scale (1-10): 4 Quality: aching and dull Pain Consistency: constant Relieving factors: none Exacerbating factors: none Associated symptoms: denies other symptoms Treatments prior to arrival: none Related Data Previous Rx's Medication Instructions Recorded mupirocin calcium 2 % topical cream 1 applic topical BID #15 grams 06/07/20 valacyclovir 1 gram tablet 1,000 mg PO BID #14 tabs 06/07/20 (Valtrex) hydrocodone 5 mg-acetaminophen 325 1 tab PO Q6H PRN pain #8 tabs 08/14/21 mg tablet ibuprofen 600 mg tablet 600 mg PO Q6H PRN pain #30 tabs 08/14/21 ondansetron 4 mg disintegrating 4 mg PO Q8H PRN nausea and 08/14/21 tablet vomiting #20 tabs sulfamethoxazole 800 1 tab PO BID 7 days #14 tabs 08/14/21 mg-trimethoprim 160 mg tablet (Bactrim DS) amoxicillin 500 mg tablet 500 mg PO Q12H #20 tabs 12/18/21 ibuprofen 600 mg tablet 600 mg PO Q8H PRN fever or pain 12/18/21 #20 tabs ondansetron 4 mg disintegrating 4 mg PO Q6-8H PRN nausea and 02/05/22 tablet vomiting #10 tabs morphine 15 mg immediate release 15 mg PO Q8H PRN pain #6 tabs 02/06/22 tablet morphine 15 mg immediate release 15 mg PO Q4-6H PRN pain 7 days #10 12/05/23 tablet tabs Allergies Allergy/AdvReac Type Severity Reaction Status Date / Time No Known Allergies Allergy Verified 08/14/21 06:25 Review of Systems Constitutional: Constitutional: Reports no additional constitutional complaints, Denies chills, Denies fever(s) and Denies night sweats Eyes: Eyes: Reports no additional eye complaints, Denies blurry vision, Denies change in vision, Denies diplopia, Denies eye discharge, Denies loss of vision and Denies eye pain ENT: Denies dizziness Cardiovascular: Cardiovascular: Reports no additional cardiovascular complaints, Denies chest pain, Denies lightheadedness, Denies Loss of Consciousness and Denies dyspnea Respiratory: Respiratory: Reports no additional respiratory complaints and Denies dyspnea Gastrointestinal: Gastrointestinal: Reports no additional gastrointestinal complaints, Reports abdominal pain, Denies melena, Denies hematochezia, Denies change in bowel habits and Denies change in stool character Genitourinary: Genitourinary: Denies hematuria, Denies urinary frequency, Denies dysuria, Denies urinary incontinence, Denies urinary hesitancy and Denies urinary urgency Musculoskeletal: Musculoskeletal: Reports no additional musculoskeletal complaints, Denies numbness and Denies tingling Neurologic: Denies dizziness, Denies loss of vision, Denies numbness and Denies tingling Psychiatric: Psychiatric: Reports no additional psychiatric complaints Endocrine: Endocrine: Reports no additional endocrine complaints Hematologic/Lymphatic: Hematologic/Lymphatic: Reports no additional hematologic/lymphatic complaints Allergic/Immunologic: Allergic/Immunologic: Reports no additional allergic/immunologic complaints PMFSH Past Medical History Attestation statement: The following information was validated with the patient. Source: old records reviewed and nursing notes reviewed Medical History Physical exam Anemia Surgical History No pertinent past surgical history Social History Social History Alcohol intake: never Patient Tobacco Use Status: Never used Tobacco Smoked in Last 30 Days: No Use of substances other than those prescribed or required for medical reasons: Yes Substance Use Type: Marijuana Advance Directives: No Advance Directives Information Provided: No Patient : No Physical Exam ED Vital Signs: Vital Signs - 24 hr 12/05/23 18:35 12/05/23 19:37 12/05/23 23:03 Temperature 98.1 F 97.8 F 97.8 F Pulse Rate 66 78 78 Respiratory Rate 18 14 16 Blood Pressure 135/112 H 126/71 126/70 Pulse Oximetry 94 99 100 Oxygen Delivery Method Room Air Room Air Room Air BMI result Body Mass Index 27.3 Const General: cooperative, no acute distress, alert and awake Nutritional Appearance: well nourished Orientation/consciousness: patient oriented x3 Limitations: no limitations HENMT Head: Yes normal to inspection and Yes atraumatic Ears: hearing grossly normal bilaterally and external ears normal General nose exam: Normal external nose present, no nasal discharge noted and no epistaxis Face and sinus: Yes normal facial exam, No abrasion and No laceration Mouth: Normal oral and palatal mucosa present, no drooling and no muffled voice Eyes General: appearance normal, both eyes and all related structures Periorbital: periorbital findings normal Eyelids: Yes eyelids normal Conjunctivae: conjunctivae normal Pupils: Equal, round and reactive pupils present EOM: EOMs intact bilaterally Neck Neck: Yes normal visual inspection, Yes full ROM and Yes no lymphadenopathy Chest Chest palpation & inspection: normal inspection of the chest Resp Effort & Inspection: normal respiratory effort and able to speak in complete sentences GI Inspection: Yes normal to inspection Palpation (GI): Soft to palpation, not firm, Tenderness to palpation present (GI) in the RLQ and no guarding Neuro General: patient oriented x3 and moves all extremities Cranial nerves: Yes Equal, round and reactive pupils present Cognition (Neuro): normal cognition Motor exam (neuro): 5/5 motor strength present throughout Sensory Exam: Normal double simultaneous stimulation for sensation Coordination: [id number] test normal Extrem General: Yes normal to inspection, Yes full ROM and Yes capillary refill normal Psych Appearance: grossly normal Mental Status: mental status grossly normal Affect: normal affect Attitude: cooperative Thought process: Normal thought process present Thought content: Normal thought content present Insight: Good insight present (Psych) Course Course Course Narrative: Patient complains of right low abdominal pain off and on for a week similar to of prior ovarian cyst, denies vomiting but does say she has lost her appetite, positive anorexia, no fever There was diffuse lower right side tenderness no rebound no guarding Labs ordered This is rapid medical exam done in triage pending full evaluation and dispo by ER provider Medications Administered Discontinued Medications Generic Name Dose Route Start Last Admin Trade Name Mary PRN Reason Stop Dose Admin Hydromorphone HCl 1 mg 12/05/23 20:39 12/05/23 20:48 Hydromorphone Hcl 1 Mg/Ml Syringe IVPUSH 12/05/23 20:40 1 mg ONCE ONE Administration Protocol Iohexol 100 ml 12/05/23 21:04 12/05/23 21:05 Iohexol 350 Mg/Ml 100 Ml Infus..Btl IV 12/05/23 21:05 85 ml ONCE ONE Administration Ketorolac Tromethamine 15 mg 12/05/23 19:33 12/05/23 19:57 Ketorolac Tromethamine 15 Mg/Ml Vial IVPUSH 12/05/23 19:34 15 mg ONCE ONE Administration Ondansetron HCl 4 mg 12/05/23 20:39 12/05/23 20:48 Ondansetron Hcl 4 Mg/2 Ml Vial IVPUSH 12/05/23 20:40 4 mg ONCE ONE Administration Medical Decision Making Medical Decision Making MDM Narrative: Patient is a 23 year old assigned female at with a history of ovarian cysts presenting to the emergency department today with abdominal pain. Patient's physical exam was as noted in the physical exam portion of this note. Patient's blood work was unremarkable. Patient's urine showed no acute process. Patient's abdomen/pelvis CT showed a large multifocal teratoma 7.7x6.3 with fatty, solid, and calcified components but was otherwise unremarkable. I explained my physical exam findings as well as all test results to the patient. I answered all questions asked by the patient. Patient explicitly requested to be sent home with Morphine tablets as this is what helped her best last time. I explained my hesitancy in sending the patient home on these tablets however, the patient assured me of an in place support system who could be available when she takes this medication. I stressed the importance of the patient taking her medication as prescribed. I stressed the importance of the patient following up with her primary care provider and an OBGYN. I stressed the importance of the patient returning to the emergency department immediately if her symptoms were to worsen or if she were to develop any dizziness, shortness of breath, difficulty breathing, chest pain, blurry vision, loss of vision, nausea, vomiting, abdominal pain, fever, chills, back pain, or any other complaints. Patient verbalized agreement and understanding with this treatment plan and discharge. Differential Diagnosis Differential Diagnoses: The differential diagnosis associated with the presentation includes Ovarian cysts Teratoma Abdominal pain Admission/Observation Consideration of admission/observation: Escalation of care including admission/observation considered Patient would have been admitted to the hospital had her work up had any findings where hospital admission was appropriate and her clinical presentation warranted hospital admission. Lab Data [facility] Lab Attestation statement: I reviewed the patient's lab results. My interpretation of these results are in the [facility] Rationale portion of this note. 12/05/23 18:51 12/05/23 18:51 Labs: Lab Results 12/05/23 Range/Units 18:51 WBC 8.1 (4.8-10.8) X10*3/uL RBC 5.15 (4.20-5.50) X10*6/uL Hgb 14.4 (12.0-16.0) g/dl Hct 43.3 (37.0-47.0) % MCV 84.1 (80.0-98.0) fL MCH 28.0 (27.0-33.0) pg MCHC 33.3 (31.0-35.0) g/dl RDW 13.6 (11.0-16.0) % Plt Count 274 (160-400) X10*3/uL MPV 9.6 (9.4-12.3) fL Immature Gran % (Auto) 0.2 (0.0-0.4) % Neut % (Auto) 79.8 H (45-73) % Lymph % (Auto) 13.1 L (20-40) % [place] % (Auto) 6.0 (2-11) % Eos % (Auto) 0.5 (0-4) % Baso % (Auto) 0.4 (0-2) % Lymph # (Auto) 1.1 L (1.2-4.9) X10*3/uL [place] # (Auto) 0.5 (0.1-1.2) X10*3/uL Eos # (Auto) 0.0 (0.0-0.4) X10*3/uL Baso # (Auto) 0.0 (0.0-0.2) X10*3/uL Abs Immat Gran (auto) 0.02 (0.00-0.03) X10*3/uL Absolute Neuts (auto) 6.5 (2.0-8.3) x10*3/uL Absolute Nucleated RBC 0.000 (0.0-0.012) X10*3/uL Nucleated RBC % (auto) 0.0 (0.0-0.2) /100WBC Sodium 140 (135-145) mmol/L Potassium 3.7 (3.3-5.1) mmol/L Chloride 108 (96-108) mmol/L Carbon Dioxide 25 (22-29) mmol/L Anion Gap 11 L (12-20) BUN 8 L (9-16) mg/dL Creatinine 0.68 (0.5-1.4) mg/dL Estim Creat Clear Calc 140.5 Estimated GFR > 60 Random Glucose 82 (60-115) mg/dL Calcium 9.4 (8.4-10.2) mg/dL Total Bilirubin 1.5 H (0.0-1.0) mg/dL Direct Bilirubin 0.5 (0.0-0.5) mg/dL AST 14 (5-31) U/L ALT 11 (0-31) U/L Alkaline Phosphatase 70 (39-117) U/L Total Protein 7.5 (6.5-8.0) g/dL Albumin 4.3 (3.5-5.0) g/dL Lipase 10 (8-78) U/L Beta HCG, Quant < 2 mIU/mL Urine Color Yellow Urine Appearance Clear Urine pH 5.5 (5.0-9.0) Ur Specific [place] 1.010 (1.005-1.025) Urine Protein Negative (Neg-Trace) mg/dL Urine Glucose (UA) Negative (Negative) mg/dL Urine Ketones Negative (Negative) mg/dL Urine Blood Negative (Negative) Urine Nitrite Negative (Negative) Ur Leukocyte Esterase Negative (Negative) Urine Test NEGATIVE (NEGATIVE) Independent Interpretation I performed an independent interpretation of an: CT Scan Interpretation: My interpretation is in agreement with the radiologist's impression of this imaging study. EXAMINATION: CT ABDOMEN AND PELVIS WITH CONTRAST CLINICAL INFORMATION: 23-year-old female with right lower quadrant abdominal pain, evaluate for appendicitis COMPARISON: 02/05/2022 TECHNIQUE: Multidetector volumetric images were obtained from the superior aspect of the liver through the pubic symphysis following administration 85 mL of Omnipaque 350 intravenous contrast. Sagittal and coronal reformatted images were obtained on the technologist's workstation. Oral contrast: None This CT examination was performed using dose optimization techniques as appropriate, variously including the following: *Automated exposure control *Adjustment of mA and/or kV according to patient size (this includes techniques or standardized protocols for targeted exams where dose is matched to indication/reason for exam; i.e. extremities or head) *Use of iterative reconstruction technique DLP: 487 mGy-cm FINDINGS: LUNG BASES: The visualized lung bases are unremarkable. LIVER, GALLBLADDER, AND BILIARY TREE: The liver is normal in size, shape, and attenuation. No focal hepatic lesion or biliary ductal dilatation is present. The gallbladder is unremarkable with no evidence of radiopaque gallstones, gallbladder wall thickening, or obvious pericholecystic inflammatory changes. PANCREAS: Unremarkable. SPLEEN: Unremarkable. ADRENAL GLANDS: Unremarkable. KIDNEYS AND URETERS: The kidneys are normal in size, shape, and attenuation. No hydronephrosis, hydroureter, or calculi seen. No perinephric stranding. BLADDER: Unremarkable. GASTROINTESTINAL TRACT: The small and large bowel are unremarkable. The appendix is unremarkable. ABDOMINAL WALL: No significant hernia is appreciated. LYMPH NODES: Normal. VASCULAR: Unremarkable. 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 On the left there are multiple calcifications present associated with cystic structure extending to the left and in the cul-de-sac. Fluid collection measured 8.6 x 5.8 x 5.0 cm. Uterus is unremarkable OSSEOUS STRUCTURES: Bilateral adnexal/ovarian mature teratomas growing since previous study. Surgical excision is recommended CT/CT abdomen pelvis w IV con IMPRESSION: No significant abnormality. Fleischner guidelines were followed. Dictated By: Evy Drummond MD Signed By: Electronically signed by Evy Drummond MD 12/05/23 1510 Radiology Impression Discussion of test interpretation with radiology: I have reviewed the radiologist's reading. Critical Care Time Critical Care Time Critical Care Time: Yes Total Critical Care Time: 79 Attestation: I spent 79 minutes of Critical Care Time with this patient. This does not include time spent on separately reported billable procedures. Discharge Plan Discharge Clinical Impression: Abdominal pain, Teratoma, Ovarian cyst Patient Disposition: Home, Self-Care Instructions: Ovarian Cyst (ED), Abdominal Pain (ED) Additional Instructions: Follow up with your primary care provider and an OBGYN. Return to the emergency department immediately if your symptoms worsen or if you develop any dizziness, shortness of breath, difficulty breathing, chest pain, blurry vision, loss of vision, nausea, vomiting, abdominal pain, fever, chills, back pain, or any other complaints. Prescriptions: New morphine 15 mg tablet 15 mg PO Q4-6H PRN (Reason: pain) 7 Days Qty: 10 0RF Rx Instructions: Take for BREAKTHROUGH pain. Partial Fill upon patient request. Continued morphine 15 mg tablet 15 mg PO Q8H PRN (Reason: pain) Qty: 6 0RF Rx Instructions: Patient can partially filled this prescription upon request No Action valacyclovir [Valtrex] 1 gram tablet 1,000 mg PO BID Qty: 14 0RF Rx Instructions: VALTREX TWICE A DAY FOR 7 DAYS DISPENSE 14 TABS mupirocin calcium 2 % cream 1 applic topical BID Qty: 15 0RF Rx Instructions: MUPIROCIN OINTMENT APPLY TWICE A DAY FOR 5 DAYS DISPENSE 1 TUBE amoxicillin 500 mg tablet 500 mg PO Q12H Qty: 20 0RF ibuprofen 600 mg tablet 600 mg PO Q8H PRN (Reason: fever or pain) Qty: 20 0RF ondansetron 4 mg tablet,disintegrating 4 mg PO Q6-8H PRN (Reason: nausea and vomiting) Qty: 10 0RF hydrocodone-acetaminophen 5-325 mg tablet 1 tab PO Q6H PRN (Reason: pain) Qty: 8 0RF ibuprofen 600 mg tablet 600 mg PO Q6H PRN (Reason: pain) Qty: 30 0RF ondansetron 4 mg tablet,disintegrating 4 mg PO Q8H PRN (Reason: nausea and vomiting) Qty: 20 0RF sulfamethoxazole-trimethoprim [Bactrim DS] 800-160 mg tablet 1 tab PO BID 7 Days Qty: 14 0RF Ref[place] [facility] [place] [facility] [place] (Call to establish and follow up with a primary care provider. If you already have a primary care provider, please follow up with them.) [facility] [place]Provider Group] (Call to establish and follow up with a primary care provider. If you already have a primary care provider, please follow up with them.) [facility] [place]Provider Group] (Call to establish and follow up with a primary care provider. If you already have a primary care provider, please follow up with them.) Stas Randle MD [Physician] - (Call to establish and follow up with an OBGYN.) Stand Alone Forms: Work/School Release Interventions: ED Discharge Assessment Last Done: 12/05/23 23:03 Discharge Date/Time: 12/05/23 23:06 Print Language: Green[place]ic
[2023-12-05 18:59] LABS: MANUAL DIFF FLAG NO
[2023-12-05 19:02] LABS: Appearance Urine Clear; Basophils Percent Auto 0.4 % (0-2); Color Urine Yellow; Eosinophils Percent Auto 0.5 % (0-4); Glucose Urine UA Negative (Negative); Hematocrit 43.3 % (37.0-47.0); Hemoglobin 14.4 g/dl (12.0-16.0); Imm Gran Abs Auto 0.02 X10*3/uL (0.00-0.03); Imm Gran Pct Auto 0.2 % (0.0-0.4); Leukocyte Esterase Urine Negative (Negative); Lymphocytes Absolute Auto 1.1 X10*3/uL (1.2-4.9); Lymphocytes Percent Auto 13.1 % (20-40); Mean Corpuscular HGB Conc 33.3 g/dl (31.0-35.0); Mean Corpuscular Volume 84.1 fL (80.0-98.0); Mean Platelet Volume 9.6 fL (9.4-12.3); Monocytes Absolute Auto 0.5 X10*3/uL (0.1-1.2); Neutrophils Absolute Auto 6.5 x10*3/uL (2.0-8.3); Neutrophils Percent Auto 79.8 % (45-73); Nitrite Urine Negative (Negative); PH 5.5 (5.0-9.0); Platelet Count 274 X10*3/uL (160-400); Red Blood Count 5.15 X10*6/uL (4.20-5.50); Red Cell Distribution Width 13.6 % (11.0-16.0); UPreg QC Valid YES; Urine Blood Negative (Negative); Urine Ketones Negative (Negative); Urine Pregnancy NEGATIVE (NEGATIVE); Urine Protein Negative (Neg-Trace); White Blood Count 8.1 X10*3/uL (4.8-10.8)
[2023-12-05 19:20] LABS: Alanine Aminotransferase 11 U/L (0-31); Albumin Level 4.3 g/dL (3.5-5.0); Alkaline Phosphatase 70 U/L (39-117); Anion Gap 11 (12-20); Aspartate Amino Transferase 14 U/L (5-31); Bilirubin Direct 0.5 mg/dL (0.0-0.5); Bilirubin Total 1.5 mg/dL (0.0-1.0); Blood Urea Nitrogen 8 mg/dL (9-16); Calcium 9.4 mg/dL (8.4-10.2); Carbon Dioxide 25 mmol/L (22-29); Chloride 108 mmol/L (96-108); Creatinine Clr Calc Pharmacy 140.5; Estimated Glomerular Filt Rate > 60; Glucose Random 82 mg/dL (60-115); Lipase 10 U/L (8-78); Potassium 3.7 mmol/L (3.3-5.1); Sodium 140 mmol/L (135-145); Total Protein 7.5 g/dL (6.5-8.0)
[2023-12-05 19:22] LABS: HCG Quantitative < 2 mIU/mL
--- NOTE | 2023-12-05 19:34 | PC.NURSE ---
Pt ca&ox4, no signs of distress. Pt reports RLQ abdm pain that started on and has progressively gotten worse. Pain is a 8/10 Pt reports chills, nausea, urgency, and frequency with urination and also urinating small amounts, bilateral flank pain. Plan of care ongoing.
[2023-12-05 19:37] VITALS: BP 126/71; PULSE 78; RESP 14; TEMP 36.6; O2SAT 99
[2023-12-05] MEDS: Ketorolac Tromethamine 15 MG/ML VIAL IVPUSH (19:57)
--- NOTE | 2023-12-05 20:09 | PC.NURSE ---
Pt tearful reporting 8/10 RLQ pain. IV access obtained. Pt medicated per nov. Pt requested and lights dimmed. Plan of care ongoing.
[2023-12-05] MEDS: ondansetron HCL 4 MG/2 ML VIAL IVPUSH (20:48)
[2023-12-05] MEDS: HYDROmorphone HCl 1 MG/ML SYRINGE IVPUSH (20:48)
--- NOTE | 2023-12-05 20:58 | PC.NURSE ---
Pt medicated per nov. Ct with pt. Plan of care ongoing.
[2023-12-05] MEDS: iohexoL 350 MG/ML 100 ML INFUS..BTL IV (21:05)
[2023-12-05 23:03] VITALS: BP 126/70; PULSE 78; RESP 16; TEMP 36.6; O2SAT 100
== END 2023-12-05 23:06 | disposition home or self-care (01) ==
PROVIDERS: Physician Assistant Medical; Emergency Provider Emergency Medicine Emergency Medical Services
DX: R10.31 Right lower quadrant pain (principal); D27.9 Benign neoplasm of unspecified ovary; N83.209 Unspecified ovarian cyst, unspecified side
CPT/HCPCS: 36415; 74177; 80048; 80076; 81003; 81025; 83690; 84702; 85025; 96374; 96375; 99284; J1170; J1885; J2405; Q9967

== ENCOUNTER 2023-12-06 06:40 | Emergency (ER) | payer OTHER, SELFPAY ==
--- NOTE | ~2023-12-06 | US_ITS ---
EXAM: Pelvic Ultrasound CLINICAL INDICATION: Pelvic pain. Known teratoma. Question torsion. COMPARISON: Corresponding CT abdomen pelvis and pelvic ultrasound February 05, 2022 TECHNIQUE: The pelvis was evaluated using transabdominal imaging. Patient was unable to tolerate transvaginal imaging due to pain. FINDINGS: The uterus measures 6.8 x 3.2 x 3.2 cm in longitudinal by AP by transverse dimension. The endometrial stripe is not thickened and measures 0.8 cm. Centered within the left adnexa is a complex appearing mainly solid mass which measures approximately 8.5 x 7.2 x 9.6 cm cyst. Neither ovary was clearly visualized. Moderate amount of free pelvic fluid is present. US/US pelvic complete IMPRESSION: 1. Large, complex appearing mainly solid mass within the left adnexa measuring approximately 9.6 x 7.2 x 9.6 cm. This corresponds with known teratoma which is much better visualized on corresponding cross-sectional imaging. 2. Neither ovary was clearly visualized. 3. Moderate amount of free pelvic fluid.
--- NOTE | ~2023-12-06 | CT_ITS ---
EXAMINATION: CT abdomen pelvis w IV con CLINICAL INFORMATION: Reason for Exam severe abd pain suspect ruptured teratoma COMPARISON: 12/05/2023 TECHNIQUE: Multidetector volumetric imaging was performed from the superior aspect of the liver through the pubic symphysis 100 mL of Omnipaque 350 injected Sagittal and coronal reformatted images were obtained on the technologist's workstation. This CT examination was performed using dose optimization techniques as appropriate, variously including the following: *Automated exposure control *Adjustment of mA and/or kV according to patient size (this includes techniques or standardized protocols for targeted exams where dose is matched to indication/reason for exam; i.e. extremities or head) *Use of iterative reconstruction technique DLP: 574 mGy-cm FINDINGS: LOWER THORAX: Included lung bases are clear. HEPATOBILIARY: No focal hepatic lesions. No biliary ductal dilatation. GALLBLADDER: Gallbladder unremarkable. SPLEEN: Spleen is normal in size. PANCREAS: No focal mass or ductal dilatation. STOMACH AND GASTROINTESTINAL TRACT: Stomach is grossly unremarkable. There is no bowel distention or thickening. No CT evidence of appendicitis. ADRENALS: No adrenal nodules. KIDNEYS/URETERS: No hydronephrosis, stones or solid mass lesions. URINARY BLADDER: Partially decompressed. PELVIC VISCERA: Redemonstration of complex mass in the anterior pelvis measures about 8 x 6.5 cm containing solid, fluid, fat and calcification possibly tooth, suggesting possibly teratoma, has not significantly changed in characteristics in size since prior exam. There is a similar smaller mass in the left adnexa roughly measure 3.4 x 3.2 cm which may represent protrusion pedunculation of the same anterior pelvic teratoma or a second teratoma. There is large amount of free fluid in the pelvis and in the cul-de-sac's, nonspecific etiology, cannot rule out ruptured cyst or teratoma. PERITONEUM: There is no free air in the abdomen or pelvis. LYMPH NODES: No lymphadenopathy. VASCULAR:Abdominal aorta normal in size, no aneurysm found. BONES, ABDOMINAL WALL AND SOFT TISSUES: Age-appropriate changes of the spine and skeletal system, no destructive osteolytic or osteosclerotic bone lesion found CT/CT abdomen pelvis w IV con IMPRESSION: 1. Redemonstration of a complex mass in the anterior pelvis containing solid, fluid, fat and calcification possibly tooth, suggesting teratoma, has not significantly changed in size since prior exam 1 day earlier. There is a similar smaller mass in the left adnexa which may represent protrusion pedunculation of the same teratoma or a second teratoma. 2. There is large amount of free fluid in the pelvis and in the cul-de-sac's, nonspecific etiology, cannot rule out ruptured cyst or teratoma. 3. Surgical/SLAT TWISTER consultation recommended.
[2023-12-06 06:48] VITALS: BP 133/71; PULSE 76; RESP 18; TEMP 36.6; O2SAT 100; BMI 26.7
--- NOTE | 2023-12-06 07:32 | ED_ITS ---
HPI - Abdominal Pain General Chief Complaint: Abdominal Pain Stated Complaint: side pain, ovarian cyst? 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 Patient states that she did not have insurance for the past 2 years so she did not pursue follow-up after being diagnosed with the teratomas 2 years ago. Pt reports difficulty walking and lifting leg. Related Data Previous Rx's Medication Instructions Recorded mupirocin calcium 2 % topical cream 1 applic topical BID #15 grams 06/07/20 valacyclovir 1 gram tablet 1,000 mg PO BID #14 tabs 06/07/20 (Valtrex) hydrocodone 5 mg-acetaminophen 325 1 tab PO Q6H PRN pain #8 tabs 08/14/21 mg tablet ibuprofen 600 mg tablet 600 mg PO Q6H PRN pain #30 tabs 08/14/21 ondansetron 4 mg disintegrating 4 mg PO Q8H PRN nausea and 08/14/21 tablet vomiting #20 tabs sulfamethoxazole 800 1 tab PO BID 7 days #14 tabs 08/14/21 mg-trimethoprim 160 mg tablet (Bactrim DS) amoxicillin 500 mg tablet 500 mg PO Q12H #20 tabs 12/18/21 ibuprofen 600 mg tablet 600 mg PO Q8H PRN fever or pain 12/18/21 #20 tabs ondansetron 4 mg disintegrating 4 mg PO Q6-8H PRN nausea and 02/05/22 tablet vomiting #10 tabs morphine 15 mg immediate release 15 mg PO Q8H PRN pain #6 tabs 02/06/22 tablet morphine 15 mg immediate release 15 mg PO Q4-6H PRN pain 7 days #10 12/05/23 tablet tabs Allergies Allergy/AdvReac Type Severity Reaction Status Date / Time No Known Allergies Allergy Verified 12/06/23 06:48 Review of Systems Review of Systems Pertinent positives and negatives as stated in HPI PMFSH Past Medical History Source: nursing notes reviewed Medical History Physical exam Anemia Surgical History No pertinent past surgical history Social History Social History Alcohol intake: current Alcohol intake frequency: holidays/special occasions only Patient Tobacco Use Status: Never used Tobacco Smoked in Last 30 Days: No Use of substances other than those prescribed or required for medical reasons: No Substance Use Type: Marijuana Advance Directives: No Advance Directives Information Provided: Yes Patient : No Physical Exam ED Vital Signs: Vital Signs - 24 hr 12/06/23 06:48 12/06/23 08:20 12/06/23 08:21 Temperature 97.8 F Pulse Rate 76 106 H 74 Respiratory Rate 18 22 H 20 Blood Pressure 133/71 112/59 L 126/60 Pulse Oximetry 100 100 100 Oxygen Delivery Method Room Air Room Air Oxygen Flow Rate 12/06/23 08:55 12/06/23 08:55 Temperature Pulse Rate 68 Respiratory Rate 12 Blood Pressure 112/68 Pulse Oximetry 88 L 97 Oxygen Delivery Method Room Air Nasal Cannula Oxygen Flow Rate 2 BMI result Body Mass Index 26.7 VITAL SIGNS: Reviewed. GENERAL: Well developed, well nourished, in no acute distress. HEAD: Normocephalic/atraumatic EYES: PERRLA, EOMI EARS: Ext canals without abnormality NOSE: Nares patent bilateral OROPHARYNX: no oral lesions noted, posterior pharynx clear NECK: Supple, no adenopathy LUNGS: Normal breath sounds. No adventitious sounds or accessory muscle use. SpO2<100> CARDIOVASCULAR: Regular rate and rhythm without noted murmurs ABDOMEN: Soft, non-tender, non-distended with bowel sounds. MUSCULOSKELETAL: No tenderness, deformities, or effusions noted on gross inspection. EXTREMITIES: No cyanosis, clubbing or edema. SKIN: Inspection of the skin reveals no rashes NEUROLOGIC: Alert and oriented x 4. Strength and sensation to light touch were grossly intact x 4. Medical Decision Making Medical Decision Making MDM Narrative: 23-year-old female with history and clinical presentation, DDX: Ovarian torsion secondary to teratoma, rupture of teratoma, less likely felt to be renal colic. INTERVENTION: LABS, STAT ULTRASOUND, BEDSIDE ULTRASOUND, TYPE AND SCREEN, IV FLUIDS, BETA HCG, PAIN MEDICATION 0745: Bedside ultrasound performed demonstrates free fluid, contacted Dr Randle @ [phone] with clinical suspicions and ordered stat CT scan. 0808: No decrease in hemoglobin, quick prelim view of CT scan concerning for increase pelvic fluid but appears to be somewhat contained and not sure if there is rupture within a potential space as opposed to free flowing within the abdomen. I updated Dr. Randle, ultrasound is in the room now evaluating for evidence of torsion, patient remains in pain after receiving 0.5 mg of Dilaudid and continues to have nausea and vomiting. Have given her 4 mg of Zofran and 25mcg fentanyl. 0821: Patient remains hemodynamically stable, peritonitic, vomiting, I spoke briefly with the bedside foreign languages department chair, unable to view ovarian tissue to assess for torsion but confirms free fluid which is visualized by both myself and the foreign languages department chair. I have updated Dr. Randle. 0825: I discussed the case with Dr. Randle, he will come in and see the patient at bedside. I reviewed all investigations and hematologic indices are negative for leukocytosis/anemia/thrombocytopenia. Chemistry values have not been resulted due to broken lab machine, urinalysis negative for UTI or urine . CT and ultrasound findings as discussed above. Dr. Randle became and evaluated the patient at bedside, he has discussed this case with [facility] and Dr. Cook is accepting the patient in transfer. Patient required supplemental oxygen, 2 L, due to pain medication control. Differential Diagnosis Differential Diagnoses: The differential diagnosis associated with the presentation includes Please see the discussion above Admission/Observation Consideration of admission/observation: Escalation of care including admission/observation considered Please see the discussion above Consult Healthcare Provider Management of the patient was discussed with: [facility] Lab Data MDM Lab Attestation statement: I reviewed the patient's lab results. Please see the discussion above 12/06/23 07:39 12/06/23 07:39 Labs: Lab Results 12/06/23 Range/Units 07:39 WBC 8.5 (4.8-10.8) X10*3/uL RBC 5.12 (4.20-5.50) X10*6/uL Hgb 14.3 (12.0-16.0) g/dl Hct 41.9 (37.0-47.0) % MCV 81.8 (80.0-98.0) fL MCH 27.9 (27.0-33.0) pg MCHC 34.1 (31.0-35.0) g/dl RDW 13.7 (11.0-16.0) % Plt Count 284 (160-400) X10*3/uL MPV 9.7 (9.4-12.3) fL Immature Gran % (Auto) 0.4 (0.0-0.4) % Neut % (Auto) 84.9 H (45-73) % Lymph % (Auto) 8.5 L (20-40) % [place] % (Auto) 5.9 (2-11) % Eos % (Auto) 0.1 (0-4) % Baso % (Auto) 0.2 (0-2) % Lymph # (Auto) 0.7 L (1.2-4.9) X10*3/uL [place] # (Auto) 0.5 (0.1-1.2) X10*3/uL Eos # (Auto) 0.0 (0.0-0.4) X10*3/uL Baso # (Auto) 0.0 (0.0-0.2) X10*3/uL Abs Immat Gran (auto) 0.03 (0.00-0.03) X10*3/uL Absolute Neuts (auto) 7.2 (2.0-8.3) x10*3/uL Absolute Nucleated RBC 0.000 (0.0-0.012) X10*3/uL Nucleated RBC % (auto) 0.0 (0.0-0.2) /100WBC Beta HCG, Quant < 2 mIU/mL Blood Type O Positive Antibody Screen NEGATIVE Radiology Impression Discussion of test interpretation with radiology: I have reviewed the radiologist's reading. Radiologist Impression: Please see the discussion above External Record Review External record reviewed: Outpatient record, Prior outpatient labs and Prior outpatient radiology Medications Administered Discontinued Medications Generic Name Dose Route Start Last Admin Trade Name Freq PRN Reason Stop Dose Admin Fentanyl 25 mcg 12/06/23 08:06 12/06/23 08:13 Fentanyl Citrate/Pf 100 Mcg/2 Ml Vial IVPUSH 12/06/23 08:07 25 mcg ONCE ONE Administration Protocol Hydromorphone HCl 0.5 mg 12/06/23 07:28 12/06/23 07:43 Hydromorphone Hcl 0.5 Mg/0.5 Ml Syringe IVPUSH 12/06/23 07:29 0.5 mg ONCE ONE Administration Protocol Hydromorphone HCl 0.5 mg 12/06/23 08:19 12/06/23 08:29 Hydromorphone Hcl 0.5 Mg/0.5 Ml Syringe IVPUSH 12/06/23 08:20 0.5 mg ONCE ONE Administration Protocol Hydromorphone HCl 0.25 mg 12/06/23 09:06 12/06/23 09:10 Hydromorphone Hcl 0.5 Mg/0.5 Ml Syringe IVPUSH 12/06/23 09:07 0.25 mg ONCE ONE Administration Protocol Sodium Chloride 1,000 mls @ 999 mls/hr 12/06/23 07:45 12/06/23 08:54 Ns IV 12/06/23 08:45 Infused .Q1H1M GRAY Infusion Iohexol 100 ml 12/06/23 08:09 12/06/23 08:10 Iohexol 350 Mg/Ml 100 Ml Infus..Btl IV 12/06/23 08:10 85 ml ONCE ONE Administration Ondansetron HCl 4 mg 12/06/23 07:51 12/06/23 07:53 Ondansetron Hcl 4 Mg/2 Ml Vial IVPUSH 12/06/23 07:52 4 mg ONCE ONE Administration Critical Care Time Critical Care Time Critical Care Time: Yes Total Critical Care Time: 90 Attestation: I personally attest to this time spent taking care of the patient. Discharge Plan Discharge Clinical Impression: Peritonitis, Ovarian cyst rupture Patient Disposition: [facility] Transfer Details: Escalation of care to specialty services, gynecology Prescriptions: No Action valacyclovir [Valtrex] 1 gram tablet 1,000 mg PO BID Qty: 14 0RF Rx Instructions: VALTREX TWICE A DAY FOR 7 DAYS DISPENSE 14 TABS mupirocin calcium 2 % cream 1 applic topical BID Qty: 15 0RF Rx Instructions: MUPIROCIN OINTMENT APPLY TWICE A DAY FOR 5 DAYS DISPENSE 1 TUBE amoxicillin 500 mg tablet 500 mg PO Q12H Qty: 20 0RF ibuprofen 600 mg tablet 600 mg PO Q8H PRN (Reason: fever or pain) Qty: 20 0RF ondansetron 4 mg tablet,disintegrating 4 mg PO Q6-8H PRN (Reason: nausea and vomiting) Qty: 10 0RF morphine 15 mg tablet 15 mg PO Q8H PRN (Reason: pain) Qty: 6 0RF Rx Instructions: Patient can partially filled this prescription upon request hydrocodone-acetaminophen 5-325 mg tablet 1 tab PO Q6H PRN (Reason: pain) Qty: 8 0RF ibuprofen 600 mg tablet 600 mg PO Q6H PRN (Reason: pain) Qty: 30 0RF ondansetron 4 mg tablet,disintegrating 4 mg PO Q8H PRN (Reason: nausea and vomiting) Qty: 20 0RF sulfamethoxazole-trimethoprim [Bactrim DS] 800-160 mg tablet 1 tab PO BID 7 Days Qty: 14 0RF morphine 15 mg tablet 15 mg PO Q4-6H PRN (Reason: pain) 7 Days Qty: 10 0RF Rx Instructions: Take for BREAKTHROUGH pain. Partial Fill upon patient request.
[2023-12-06] MEDS: HYDROmorphone HCl 0.5 MG/0.5 ML SYRINGE IVPUSH ×2 (07:43→08:29)
[2023-12-06 07:44] LABS: MANUAL DIFF FLAG NO
[2023-12-06] MEDS: 0.9 % Sodium Chloride 1,000 ML 999 ML IV (07:47)
[2023-12-06] MEDS: ondansetron HCL 4 MG/2 ML VIAL IVPUSH (07:53)
[2023-12-06 07:54] LABS: Basophils Percent Auto 0.2 % (0-2); Eosinophils Percent Auto 0.1 % (0-4); Hematocrit 41.9 % (37.0-47.0); Hemoglobin 14.3 g/dl (12.0-16.0); Imm Gran Abs Auto 0.03 X10*3/uL (0.00-0.03); Imm Gran Pct Auto 0.4 % (0.0-0.4); Lymphocytes Absolute Auto 0.7 X10*3/uL (1.2-4.9); Lymphocytes Percent Auto 8.5 % (20-40); Mean Corpuscular HGB Conc 34.1 g/dl (31.0-35.0); Mean Corpuscular Hemoglobin 27.9 pg (27.0-33.0); Mean Corpuscular Volume 81.8 fL (80.0-98.0); Mean Platelet Volume 9.7 fL (9.4-12.3); Monocytes Absolute Auto 0.5 X10*3/uL (0.1-1.2); Monocytes Percent Auto 5.9 % (2-11); Neutrophils Absolute Auto 7.2 x10*3/uL (2.0-8.3); Neutrophils Percent Auto 84.9 % (45-73); Platelet Count 284 X10*3/uL (160-400); Red Blood Count 5.12 X10*6/uL (4.20-5.50); Red Cell Distribution Width 13.7 % (11.0-16.0); White Blood Count 8.5 X10*3/uL (4.8-10.8)
[2023-12-06] MEDS: iohexoL 350 MG/ML 100 ML INFUS..BTL IV (08:10)
[2023-12-06 08:11] LABS: HCG Quantitative < 2 mIU/mL
[2023-12-06] MEDS: fentaNYL citrate/PF 100 MCG/2 ML VIAL 25 MCG IVPUSH (08:13)
[2023-12-06 08:20] VITALS: BP 112/59; PULSE 106; RESP 22; O2SAT 100
[2023-12-06 08:21] VITALS: BP 126/60; PULSE 74; RESP 20; O2SAT 100
[2023-12-06 08:55] VITALS: BP 112/68; PULSE 68; RESP 12; O2SAT 88; O2SAT 97
--- NOTE | 2023-12-06 08:57 | PM.GYNCN ---
TRANSIT MIXER OPERATOR - CN: HPI Data of Consult Consult date: 12/06/23 Primary Care Provider: Unknown Physician Consult Narrative Narrative: I was consulted on Vaishali Zaidi who is a 23 year old female presented emergency room with acute onset of pelvic pain this morning associated with nausea and vomiting, no vaginal bleeding. The patient was seen in the emergency room yesterday a CT scan showed the following: There are large multifocal teratoma, measured approximately 7.7 x 6.3 cm with fatty components and solid components, as well as calcification most likely teratomas tooth. On the left there are multiple calcifications present associated with cystic structure extending to the left and in the cul-de-sac. Fluid collection measured 8.6 x 5.8 x 5.0 cm. Uterus is unremarkable She Woke up this morning sudden excruciating pain and came to emergency room H&H within normal, HCG less than 2 CT scan repeated today showed the following: IMPRESSION: 1. Redemonstration of a complex mass in the anterior pelvis containing solid, fluid, fat and calcification possibly tooth, suggesting teratoma, has not significantly changed in size since prior exam 1 day earlier. There is a similar smaller mass in the left adnexa which may represent protrusion pedunculation of the same teratoma or a second teratoma. 2. There is large amount of free fluid in the pelvis and in the cul-de-sac's, nonspecific etiology, cannot rule out ruptured cyst or teratoma. 3. Surgical/TRANSIT MIXER OPERATOR consultation recommended. cc:: CC: OB [facility] Past Medical History Medical History Physical exam Anemia Surgical History Surgical History No pertinent past surgical history Social History Social History Alcohol intake: current Alcohol intake frequency: holidays/special occasions only Patient Tobacco Use Status: Never used Tobacco Smoked in Last 30 Days: No Use of substances other than those prescribed or required for medical reasons: No Substance Use Type: Marijuana Advance Directives: No Advance Directives Information Provided: Yes Patient : No Meds Allergies Allergy/AdvReac Type Severity Reaction Status Date / Time No Known Allergies Allergy Verified 12/06/23 06:48 TRANSIT MIXER OPERATOR Physical Exam Vitals Vital signs: Temp Pulse Resp BP Pulse Ox O2 Del Method O2 Flow Rate 97.8 F 68 12 112/68 97 Nasal Cannula 2 12/06/23 06:48 12/06/23 08:55 12/06/23 08:55 12/06/23 08:55 12/06/23 08:55 12/06/23 08:55 12/06/23 08:55 BMI result Body Mass Index 26.7 Abdomen Auscultation/Inspection/Palpation: Rigid, Guarding and Rebound tenderness TRANSIT MIXER OPERATOR - Results Labs 12/06/23 07:39 12/06/23 07:39 Labs: Short CBC 12/06/23 Range/Units 07:39 WBC 8.5 (4.8-10.8) X10*3/uL Hgb 14.3 (12.0-16.0) g/dl Hct 41.9 (37.0-47.0) % Plt Count 284 (160-400) X10*3/uL Antibody Screen Antibody Screen NEGATIVE 12/06/23 07:[address] scan - pelvis: Radiologist's impression: ITS Impressions Abdomen/Pelvis CT 12/06/23 08:12 IMPRESSION: 1. Redemonstration of a complex mass in the anterior pelvis containing solid, fluid, fat and calcification possibly tooth, suggesting teratoma, has not significantly changed in size since prior exam 1 day earlier. There is a similar smaller mass in the left adnexa which may represent protrusion pedunculation of the same teratoma or a second teratoma. 2. There is large amount of free fluid in the pelvis and in the cul-de-sac's, nonspecific etiology, cannot rule out ruptured cyst or teratoma. 3. Surgical/TRANSIT MIXER OPERATOR consultation recommended. Assessment and Plan (1) Ruptured ovarian cyst: Status: Acute Discussed with the patient the CT scan findings showing 8 cm complex mass 8 x 6.5 cm containing solid, fluid, fat and calcification possibly tooth, suggesting possibly teratoma in addition to large amount of fluid in the pelvis suggestive of ruptured cyst. Given the patient's age, the differential diagnosis of the complex mass with solid component includes but not limited to ovarian germ cell tumors including teratomas (mature and immature) dysgerminoma, yolk sac tumors were mixed germ cell tumors other rare ovarian germ cell tumor. Since the patient has peritoneal signs with ruptured cyst needs emergency surgical management including laparoscopy with aspiration of the peritoneal fluid with irrigation and ovarian cystectomy and since there is a likelihood of malignant transformation although it is low, I recommend to transfer the patient to [facility] for further management where gynecologic oncology service is available in case it is needed intraoperatively.. Discussed the case with Dr. Caty Cook who accepted the transfer.
[2023-12-06] MEDS: HYDROmorphone HCl 0.5 MG/0.5 ML SYRINGE 0.25 MG IVPUSH (09:10)
[2023-12-06 09:56] VITALS: BP 111/64; PULSE 63; RESP 13; TEMP 36.7; O2SAT 100
[2023-12-06 12:38] LABS: Alanine Aminotransferase 10 U/L (0-31); Albumin Level 4.6 g/dL (3.5-5.0); Alkaline Phosphatase 65 U/L (39-117); Anion Gap 14 (12-20); Aspartate Amino Transferase 14 U/L (5-31); Bilirubin Total 2.3 mg/dL (0.0-1.0); Blood Urea Nitrogen 9 mg/dL (9-16); Calcium 9.6 mg/dL (8.4-10.2); Carbon Dioxide 22 mmol/L (22-29); Chloride 104 mmol/L (96-108); Creatinine Clr Calc Pharmacy 135.2; Estimated Glomerular Filt Rate > 60; Glucose Random 102 mg/dL (60-115); Potassium 3.9 mmol/L (3.3-5.1); Sodium 136 mmol/L (135-145)
== END 2023-12-06 10:17 | disposition short-term general hospital (02) ==
PROVIDERS: Emergency Provider Student in an Organized Health Care Education/Training Program
DX: K65.9 Peritonitis, unspecified (principal); N83.209 Unspecified ovarian cyst, unspecified side
CPT/HCPCS: 36415; 74177; 76856; 80053; 84702; 85025; 86850; 86900; 86901; 96361; 96374; 96375; 96376; 99285; J1170; J2405; J3010; Q9967

== ENCOUNTER → 2023-12-06 07:22 | Outpatient (BNV) | payer OTHER, SELFPAY | PROVIDERS: Emergency Provider Student in an Organized Health Care Education/Training Program; Visit Provider Obstetrics & Gynecology | DX: N83.209 Unspecified ovarian cyst, unspecified side (principal) | CPT/HCPCS: 99283 ==